=== PATIENT | male | born 1980 | race Two or more races ===

== ENCOUNTER → 2024-12-14 | Outpatient (CLI) | payer MEDICAID, SELFPAY ==
--- NOTE | 2024-12-14 09:00 | XR_ITS ---
Examination: CT chest, without intravenous contrast. Sagittal and coronal 2-D reconstructions. Exam date and time: December 14, 2024 0931 hours Comparison June 20, 2024 INDICATIONS: CT chest June 20, 2024 spiculated cavitary mass 22 mm left upper lobe with bilateral pulmonary nodules CTDI:vol (mGy) 8.79 DLP: (mGycm) 308 Technique: Multiple 3.0 mm axial sections of the chest to been obtained. Bone and lung density settings are obtained. Sagittal and coronal 2-D reconstructions have been obtained. Low dose protocols were performed. One or more of the following dose reduction techniques were used; automated exposure control, adjustment of the mA and/or KV according to patient size, use of iterative reconstruction technique. Findings: No thoracic aortic aneurysmal dilatation Pulmonary artery segments are not enlarged No paratracheal tracheobronchial or bronchopulmonary adenopathy Cavitary mass left upper lobe 18 mm compared to 22 mm on the prior study Bilateral pulmonary nodules, no new pulmonary nodules No pneumonia or pulmonary edema No visualized liver splenic lesion No gallstones No pancreatic or adrenal mass IMPRESSION: Stable cavitary mass left upper lobe Stable bilateral pulmonary nodules, no new pulmonary nodules
== END | disposition home or self-care (01) ==
LOC: CCTX 08:56
PROVIDERS: Referring Provider Family Medicine; Visit Provider Family Medicine
DX: R91.8 Other nonspecific abnormal finding of lung field (principal)
CPT/HCPCS: 71250

== ENCOUNTER → 2025-06-22 | Outpatient (CLI) | payer MEDICAID, SELFPAY ==
--- NOTE | 2025-06-22 09:45 | XR_ITS ---
Examination: Abdomen sonogram, complete Date and time of exam: June 22, 2025, 0948 hours INDICATIONS: Right upper abdominal pain beginning 2 years ago. Technique: Multiple real-time grayscale transabdominal sonographic images of the abdomen have been obtained. Findings: Contracted gallbladder no gallstones Common bile duct 0.3 cm Pancreatic head 2.6 cm Aorta not enlarged Liver 12.9 cm no focal liver lesions Normal hepatopetal portal venous flow Patent IVC Right kidney 10.3 cm renal cortex 2.3 cm Left kidney 10.4 cm renal cortex 2.5 cm Spleen 8.7 cm IMPRESSION: Negative for cholelithiasis, negative for cholecystitis Normal common bile duct Liver normal size no focal liver lesions
== END | disposition home or self-care (01) ==
PROVIDERS: PCP Physician Assistant; Referring Provider Physician Assistant; Visit Provider Physician Assistant
DX: K76.0 Fatty (change of) liver, not elsewhere classified (principal); R10.11 Right upper quadrant pain
CPT/HCPCS: 76700